=== PATIENT | male | born 1990 | race Asian ===

== ENCOUNTER 2022-06-02 23:44 | Emergency (ER) | payer OTHER ==
[2022-06-02 23:55] VITALS: BP 151/100
--- NOTE | 2022-06-02 23:55 | ED Physician Documentation ---
PD HPI UPPER EXT INJURY - Stated complaint Stated Complaint: RT THUMB LACERATION - History obtained from History obtained from: Patient - History of Present Illness Location: Right, Finger (thumb) - Additonal information Additional information: HPI from patient. Approximately 45 minutes prior to arrival, the patient was carrying a tool meant for petting a cat; this tool contains a row of thin strips of metal that although not sharp, one of the pieces of metal did arizmendi his left thumb tip at the palmar aspect when he tripped and fell while holding this tool. Patient is a right hand dominant.He denies loss of strength, denies numbness, weakness. Review of Systems Skin: reports: Laceration (s) Neurologic: denies: Focal weakness, Numbness PD PAST MEDICAL HISTORY - Past Medical History Past Medical History: No - Present Medications Home Medications: Ambulatory Orders Medication Instructions Recorded Confirmed No Known Home Medications 06/02/22 06/02/22 - Allergies Allergies/Adverse Reactions: Allergies Allergy/AdvReac Type Severity Reaction Status Date / Time No Known Drug Allergies Allergy Verified 06/02/22 23:55 PD ED PE NORMAL - Vitals Vital signs reviewed: Yes - General General: Alert and oriented X 3, No acute distress, Well developed/nourished - Neuro Neuro: No motor deficit (FROM left thumb (IP, MCP joints)), No sensory deficit (LTS intact at tip of left thumb) PD ED PE EXPANDED - Extremities ELGIN UE/Hands Visual: 1 - laceration (1 cm length laceration to dermis) Results - Vitals Vitals: Vital Signs - 24 hr 06/02/22 06/02/22 23:53 23:56 Temperature 37.2 C Heart Rate 83 Respiratory 15 15 Rate Blood Pressure 151/100 H O2 Saturation 98 Oxygen O2 Source Room air Procedures - Laceration (location) Finger left Palmar Length in cm: 1 Wound type: Linear, Superficial, Clean Neurovascular status: Sensory intact, Motor intact, Vascular intact Tendon involvement: Tendon intact Wound preparation: Chlorhexadine, Irrigated copiously NS Skin layer closure: Dermabond, Steri strips Other: Patient tolerated well, No complications, Neurovascular intact, Dressing applied, Tetanus UTD PD Medical Decision Making - ED course Complexity details: considered differential, d/w patient ED course: Presents with superficial left thumb laceration to the pad of the thumb. This is repaired with Dermabond which was subsequently bolstered with Steri-Strips using benzoin. A simple thumb splint was also placed to help keep the thumb f rom excessive movement over the next few days, so as to promote healing of the laceration. Departure - Departure Disposition: 01 Home, Self Care Clinical Impression: Laceration Condition: Good Instructions: ED Laceration Ext Skin Glue Comments: The laceration to your thumb was repaired with tissue adhesive ("glue"). This was reinforced with Steri-Strips. The Steri-Strips and the glue will eventually peel off and flake away/off from the wound. This typically happens 5 to 7 days after they have been placed. By the time the glue detaches from the wound, ideally the wound has had enough time to close up and heal without needing any more treatment. You have also been provided a thumb splint. I would advise you to use this during the day for the first 3 or 4 days to keep the thumb relatively steady. The less movement of the thumb, the more chance the wound will have to heal.
== END 2022-06-03 00:53 | disposition home or self-care (01) ==
LOC: ED 23:44
DX: S61.011A Laceration without foreign body of right thumb without damage to nail, initial encounter (principal); W26.8XXA Contact with other sharp object(s), not elsewhere classified, initial encounter; Y93.89 Activity, other specified
CPT/HCPCS: 12001; 99282